=== PATIENT | male | born 2000 | race African-American/Black ===

== ENCOUNTER 2021-05-02 20:29 | Emergency (ER) | payer MEDICAID ==
[~2021-05-02] VITALS: Ht 170.2 cm; Wt 103.0 kg
[2021-05-02 22:02] VITALS: BP 135/90
== END 2021-05-02 22:46 | disposition home or self-care (01) ==
LOC: ER 20:29
DX: U07.1 COVID-19 (principal)
CPT/HCPCS: 71045; 87426; 99284

== ENCOUNTER 2021-05-08 13:25 | Emergency (ER) | payer MEDICAID, OTHER ==
[~2021-05-08] VITALS: Ht 170.2 cm; Wt 117.0 kg
[2021-05-08 13:30] VITALS: BP 144/92
[2021-05-08] MEDS ORDERED: TETRACAINE 0.5% OPHTH DROPS 4ML BOTHEYE ONE (13:45)
[2021-05-08] MEDS ORDERED: FLUORESCEIN SODIUM 1MG/STRIP BOTHEYE ONE (13:45)
== END 2021-05-08 18:17 | disposition home or self-care (01) ==
LOC: ER 17:28
DX: H53.8 Other visual disturbances (principal); Z86.16 Personal history of COVID-19
CPT/HCPCS: 82962; 99283